=== PATIENT | female | born 1980 | race Caucasian/White ===

== ENCOUNTER 2016-10-10 20:51 | Emergency (ER) | payer SELFPAY ==
[2016-10-10 20:55] VITALS: TEMP 98.1
[2016-10-10 21:43] VITALS: BP 136/70; PULSE 64; BMI 23.9
[2016-10-10 22:05] LABS: AUTOMATED BASOPHIL 0.3 % (0-2); AUTOMATED EOSINOPHIL 4.6 % (0-5); AUTOMATED LYMPH 33.4 % (17-44); AUTOMATED MONOCYTE 6.6 % (3-10); AUTOMATED NEUTROPHIL 55.1 % (45-76); MPV 9.1 fL (7.4-10.4)
[2016-10-10 22:19] LABS: BLOOD UREA NITROGEN 5 MG/DL (7-17); CALCIUM 9.5 MG/DL (8.4-10.2); CALCULATED OSMOLALITY 260 MOs/Kg (270-290); CHLORIDE 104 mEq/L (98-107); GLUCOSE 86 mg/dL (70-99); SODIUM LEVEL 137 mEq/L (137-146); TOTAL PROTEIN 7.5 G/DL (6.3-8.2)
[2016-10-10 22:29] LABS: LEUKOCYTES/URINE 2+ (NEGATIVE); NITRITE/URINE NEG (NEGATIVE); URINE OCCULT BLOOD 2+ (NEG/TRACE); WBC/URINE TNTC (0-5)
--- NOTE | 2016-10-10 23:03 | EDPRACDOC ---
- General Information Chief Complaint: Abdominal Pain Stated Complaint: MID UPPER ABD PAIN WITH PAIN INTO BACK Information Source: Patient Mode Of Arrival: Car Home Medications: Home Medications Ciprofloxacin HCl [Cipro] 500 mg PO BID #20 tab 10/10/16 Pantoprazole Sodium [Protonix] 20 mg PO DAILY #30 tab 10/10/16 Allergies/Adverse Reactions: Allergies Allergy/AdvReac Type Severity Reaction Status Date / Time No Known Allergies Allergy Verified 10/10/16 21:44 - History of Present Illness Onset: Tonight HPI: C/o epigastric pain x 2 days that is getting worse. Pain is worse after meals, especially with melas like "pizza". Has not tried any antacids. Denies fever, N /V/D, changes in urine or BM. Denies etoh use x 1 yr since being dx with hypothyroidism. Med hx = hypothyroid. Surgical hx = 2 c-sections, BTL. Pain Location: Reports: Epigastric Pain Context: Reports: After Eating Pain Severity: Moderate Pain Quality: Reports: Aching, Burning, Sharp Pain Radiation: Reports: No Radiation Last Menstrual Period: last week : No Adult Abdominal History: Denies: Abdominal Surgery Female Abdominal History: Reports: Abdominal Surgery Modifying Factors: improves with: Nothing Oral Intake: Decreased Urinary Output: Normal ED Past Medical History - History Reviewed Yes Nurses notes reviewed and agree except as marked - Patient Medical History Psychological History: Reports: Depression, Anxiety Systemic History: Reports: Hypothyroidism - Social Medical History Smoking Status: Heavy tobacco smoker (5 or more cigarettes/day or daily pipe/ cigar) EDM Review of Systems - Review of Systems ROS Negative Except as Marked: Yes All systems reviewed and were negative except as marked Gastrointestinal: Pain - Physical Exam Constitutional: No apparent distress, Alert Oriented to: Time, Person, Place Last recorded Vital Signs: Last Vital Signs Temp 98.1 F 10/10/16 20:51 Pulse 64 10/10/16 21:38 Resp 18 10/10/16 21:38 BP 136/70 10/10/16 21:38 Pulse Ox 95 10/10/16 21:38 Oxygen Pulse Oxygen Saturation 95 O2 Device Room Air Oxygen Flow Rate Fraction of Inspired Oxygen ( FIO2) - HEENT Head: Normal Eye Exam: negative: Conjunctival Injection, Scleral Icterus Oropharynx: negative: Drooling TMJ: Normal Nose: No Symptoms Reported Neck: Normal - Respiratory/Cardiovascular Respiratory: Normal - CTA Cardiovascular: Normal - GI Tenderness: Non tender Hurtado's Sign: Negative GI Comment: Epigastric pain is better with pressure. Pt states that she pushes in to relieve pain. - Musculoskeletal Back: Normal Extremities: Normal - Integumentary Skin: Normal - Neurologic Mood Description: Normal Thought: Coherent Perception: Normal - Results 10/10/16 21:52 10/10/16 21:52 WBC 12.2 xk/uL (3.8-10.8) H 10/10/16 21:52 RBC 5.01 xM/uL (4.20-5.40) 10/10/16 21:52 Hgb 14.9 g/dL (12.0-16.0) 10/10/16 21:52 Hct 43.0 % (36-47) 10/10/16 21:52 MCV 86 fL (81-99) 10/10/16 21:52 MCH 29.8 pg (27-32) 10/10/16 21:52 MCHC 34.7 g/dl (33-36) 10/10/16 21:52 RDW 13.0 % (11.5-14.5) 10/10/16 21:52 Plt Count 206 xk/uL (130-400) 10/10/16 21:52 MPV 9.1 fL (7.4-10.4) 10/10/16 21:52 Neut % (Auto) 55.1 % (45-76) 10/10/16 21:52 Lymph % (Auto) 33.4 % (17-44) 10/10/16 21:52 [place] % (Auto) 6.6 % (3-10) 10/10/16 21:52 Eos % (Auto) 4.6 % (0-5) 10/10/16 21:52 Baso % (Auto) 0.3 % (0-2) 10/10/16 21:52 Absolute Neuts (auto) 6.71 xk/uL (1.7-8.2) 10/10/16 21:52 Absolute Lymphs (auto) 4.03 xk/uL (0.65-4.75) 10/10/16 21:52 Sodium 137 mEq/L (137-146) 10/10/16 21:52 Potassium 3.6 mEq/L (3.5-5.1) 10/10/16 21:52 Chloride 104 mEq/L (98-107) 10/10/16 21:52 Carbon Dioxide 27 mMOL/L (22-33) 10/10/16 21:52 Anion Gap 10 mEq/L (8-16) 10/10/16 21:52 BUN 5 MG/DL (7-17) L 10/10/16 21:52 Creatinine 0.60 MG/DL (0.52-1.04) 10/10/16 21:52 Estimated GFR (MDRD) > 60 mL/min (>=60) 10/10/16 21:52 Glucose 86 mg/dL (70-99) 10/10/16 21:52 Calculated Osmolality 260 MOs/Kg (270-290) L 10/10/16 21:52 Calcium 9.5 MG/DL (8.4-10.2) 10/10/16 21:52 Total Bilirubin 0.7 MG/DL (0.2-1.3) 10/10/16 21:52 AST 27 IU/L (14-36) 10/10/16 21:52 ALT 29 IU/L (9-52) 10/10/16 21:52 Alkaline Phosphatase 71 IU/L (38-126) 10/10/16 21:52 Total Protein 7.5 G/DL (6.3-8.2) 10/10/16 21:52 Albumin 4.3 G/DL (3.5-5.0) 10/10/16 21:52 Lipase 85 U/L (23-300) 10/10/16 21:52 Urine Color Pale yellow 10/10/16 21:48 Urine Clarity Cldy 10/10/16 21:48 Urine pH 5.0 (5.0-8.0) 10/10/16 21:48 Ur Specific [place] 1.005 (1.003-1.035) 10/10/16 21:48 Urine Protein Neg (NEG/TRACE) 10/10/16 21:48 Urine Glucose (UA) Neg (NEGATIVE) 10/10/16 21:48 Urine Ketones Neg (NEGATIVE) 10/10/16 21:48 Urine Occult Blood 2+ (NEG/TRACE) H 10/10/16 21:48 Urine Nitrite Neg (NEGATIVE) 10/10/16 21:48 Urine Bilirubin Neg (NEGATIVE) 10/10/16 21:48 Urine Urobilinogen <2.0 MG/DL (0-1) 10/10/16 21:48 Ur Leukocyte Esterase 2+ (NEGATIVE) H 10/10/16 21:48 Urine RBC 5-10 (0-5) H 10/10/16 21:48 Urine WBC Tntc (0-5) H 10/10/16 21:48 Ur Epithelial Cells 2+ 10/10/16 21:48 Urine Bacteria 1+ (NEG/FEW) H 10/10/16 21:48 Urine Mucus Occ (NEG/OCC) 10/10/16 21:48 Urine Test Neg (NEGATIVE) 10/10/16 21:48 Lab Results 10/10/16 10/10/16 10/10/16 21:52 21:52 21:48 WBC 12.2 H RBC 5.01 Hgb 14.9 Hct 43.0 MCV 86 MCH 29.8 MCHC 34.7 RDW 13.0 Plt Count 206 MPV 9.1 Neut % (Auto) 55.1 Lymph % (Auto) 33.4 [place] % (Auto) 6.6 Eos % (Auto) 4.6 Baso % (Auto) 0.3 Absolute Neuts (auto) 6.71 Absolute Lymphs (auto) 4.03 Sodium 137 Potassium 3.6 Chloride 104 Carbon Dioxide 27 Anion Gap 10 BUN 5 L Creatinine 0.60 Estimated GFR (MDRD) > 60 Glucose 86 Calculated Osmolality 260 L Calcium 9.5 Total Bilirubin 0.7 AST 27 ALT 29 Alkaline Phosphatase 71 Total Protein 7.5 Albumin 4.3 Lipase 85 Urine Color Pale yellow Urine Clarity Cldy Urine pH 5.0 Ur Specific [place] 1.005 Urine Protein Neg Urine Glucose (UA) Neg Urine Ketones Neg Urine Occult Blood 2+ H Urine Nitrite Neg Urine Bilirubin Neg Urine Urobilinogen <2.0 Ur Leukocyte Esterase 2+ H Urine RBC 5-10 H Urine WBC Tntc H Ur Epithelial Cells 2+ Urine Bacteria 1+ H Urine Mucus Occ Urine Test 10/10/16 21:48 WBC RBC Hgb Hct MCV MCH MCHC RDW Plt Count MPV Neut % (Auto) Lymph % (Auto) [place] % (Auto) Eos % (Auto) Baso % (Auto) Absolute Neuts (auto) Absolute Lymphs (auto) Sodium Potassium Chloride Carbon Dioxide Anion Gap BUN Creatinine Estimated GFR (MDRD) Glucose Calculated Osmolality Calcium Total Bilirubin AST ALT Alkaline Phosphatase Total Protein Albumin Lipase Urine Color Urine Clarity Urine pH Ur Specific [place] Urine Protein Urine Glucose (UA) Urine Ketones Urine Occult Blood Urine Nitrite Urine Bilirubin Urine Urobilinogen Ur Leukocyte Esterase Urine RBC Urine WBC Ur Epithelial Cells Urine Bacteria Urine Mucus Urine Test Neg - EKG EKG #1 EKG Time: 23:12 -: Yes EKG interpreted by me Rate: bpm: 51 Rhythm: SB ST: Nonsp Comparison: 09/11/11 (SB) - Additional Information 23:30. I called pt after d/c and spoke to her in person and asked her to come back for EKG recheck. I explained to pt that we wanted to recheck EKG due to a concern for possible abnormality. Pt stated that she would come back and was on her way. Arranged for dental receptionist to bring her back without waiting. 1:25am pt has not yet shown up. 2:55am: pt called again. Left a message to please come back in for re-eval and repeat EKG. Decision Time to Discharge: 23:04 - Departure Disposition: Home Condition: Stable Final Diagnosis: UTI (urinary tract infection) Qualifiers: Urinary tract infection type: site unspecified Hematuria presence: with hematuria Qualified Code(s): N39.0 - Urinary tract infection, site not specified Gastritis Qualifiers: Gastritis type: unspecified gastritis Chronicity: acute Gastritis bleeding: presence of bleeding unspecified Qualified Code(s): K29.00 - Acute gastritis without bleeding Instructions: Gastritis (ED), Urinary Tract Infection in Women (ED), Acute Abdominal Pain (ED), Dysuria Education/Counseling Given To: Patient Education/Counseling Given Regarding: Diagnosis, Treatment, Prognosis, Follow Up Referrals: None,No Provider [Primary Care Provider] - One Week Prescriptions: New Ciprofloxacin HCl [Cipro] 500 mg PO BID #20 tab Pantoprazole Sodium [Protonix] 20 mg PO DAILY #30 tab Additional Instructions: Follow up with primary care to schedule an outpatient ultrasound of the gallbladder. Return to ED for any new or worsening symptoms.
== END 2016-10-10 23:20 | disposition home or self-care (01) ==
LOC: ED 20:51
DX: N39.0 Urinary tract infection, site not specified (principal); K29.00 Acute gastritis without bleeding; R94.31 Abnormal electrocardiogram [ECG] [EKG]; E03.9 Hypothyroidism, unspecified; F32.9 Major depressive disorder, single episode, unspecified; F41.9 Anxiety disorder, unspecified; F17.200 Nicotine dependence, unspecified, uncomplicated
CPT/HCPCS: 36415; 80053; 81001; 81025; 83690; 85025; 93005; 99283